=== PATIENT | female | born 1950 | race Caucasian/White ===

== ENCOUNTER 2017-05-16 15:55 | Emergency (ER) | payer OTHER ==
[~2017-05-16] VITALS: Ht 162.6 cm; Wt 69.5 kg
[2017-05-16] MEDS ORDERED: MAALOX/HYOSCYAMINE/LIDOCAINE 45 ML BTL ONE (16:26)
[2017-05-16 16:30] LABS: HEMATOCRIT 43.9 % (34.6-47.8); HEMOGLOBIN 14.8 g/dL (11.7-16.4); WHITE BLOOD COUNT 9.7 x10^3/uL (3.4-10)
[2017-05-16] MEDS ORDERED: MAALOX/HYOSCYAMINE/LIDOCAINE 45 ML BTL PO ONE (16:30)
[2017-05-16 16:42] LABS: ASPARTATE AMINO TRANSFERASE 17 U/L (15-37); BLOOD UREA NITROGEN 24 mg/dL (7-18)
[2017-05-16 16:50] LABS: IS PT STATUS REG ER OR PRE ER? YES
[2017-05-16 17:04] LABS: PATH.CAST-FLAG NOT PRESENT; SPERM-FLAG NOT PRESENT; SRC-FLAG NOT PRESENT; XTAL-FLAG NOT PRESENT; YLC-FLAG NOT PRESENT
[2017-05-16 17:30] VITALS: BP 134/82
== END 2017-05-16 18:13 | disposition home or self-care (01) ==
LOC: ED 17:50
DX: K29.00 Acute gastritis without bleeding (principal); R07.89 Other chest pain; I10 Essential (primary) hypertension; M19.90 Unspecified osteoarthritis, unspecified site; K21.9 Gastro-esophageal reflux disease without esophagitis; F17.200 Nicotine dependence, unspecified, uncomplicated
CPT/HCPCS: 36415; 71010; 76700; 80053; 81001; 83690; 84484; 85025; 87077; 87086; 87186; 93005; 99285

== ENCOUNTER 2018-08-04 13:44 | Emergency (ER) | payer MEDICARE, OTHER ==
[~2018-08-04] VITALS: Ht 162.6 cm; Wt 68.7 kg
[2018-08-04 13:48] VITALS: BP 154/86
[2018-08-04 14:23] LABS: MEAN CORPUSCULAR HEMOGLOBIN 31.9 pg (27.0-34.8); MEAN CORPUSCULAR HGB CONC 34.4 g/dL (32.4-35.8); MEAN CORPUSCULAR VOLUME 92.8 fL (80-100); MEAN PLATELET VOLUME 7.5 fL (7.4-10.4); PLATELET COUNT 325 x10^3/uL (130-400); RED BLOOD COUNT 4.31 x10^6/uL (3.82-5.3)
[2018-08-04 14:33] LABS: ALBUMIN 3.2 g/dL (3.4-5.0); ANION GAP 8 mmol/L (5-15); CHLORIDE 107 mmol/L (98-107); CREATININE 1.41 mg/dL (0.55-1.02)
[2018-08-04 14:51] LABS: MD YES
[2018-08-04 14:54] LABS: <PLATELET ESTIMATE> ADEQUATE; <PLT MORPHOLOGY> NORMAL PLT MORPH; <RBC MORPHOLOGY> NORMAL; BAND#(MANUAL) 0.68 x10^3/uL; BANDS%(MANUAL) 7 % (0-7); LYMPH#(MANUAL) 2.33 x10^3/uL (1-3.4); LYMPHS% (MANUAL) 24 % (22-44); MONOS#(MANUAL) 1.46 x10^3/uL (0.3-2.7); MONOS% (MANUAL) 15 % (2-9); SEG#(MANUAL) 5.24 x10^3/uL (1.8-6.8); SEGS% (MANUAL) 54 % (42-75)
== END 2018-08-04 15:21 | disposition left against medical advice (07) ==
LOC: ED 15:15
DX: M79.10 Myalgia, unspecified site (principal)
CPT/HCPCS: 36415; 80048; 82040; 85025; 93005; 99284

== ENCOUNTER 2018-08-05 17:07 | Outpatient (CLI) | payer MEDICARE ==
[~2018-08-05 17:07] MED LIST: OMNIPAQUE 350 MG/ML, 75ML BOTTLE ONE
== END 2018-08-05 23:59 | disposition home or self-care (01) ==
LOC: RAD 17:07
PROVIDERS: ATTEND Nurse Practitioner Primary Care
DX: R68.84 Jaw pain (principal); R59.9 Enlarged lymph nodes, unspecified
CPT/HCPCS: 70487; Q9967

== ENCOUNTER 2018-08-16 12:25 | Emergency (ER) | payer MEDICARE ==
[~2018-08-16] VITALS: Ht 160 cm; Wt 66.9 kg
--- NOTE | 2018-08-16 13:12 | NUR ---
PT COMPLAINT OF BILATERAL LOWER JAW PAIN WITH BODY ACHES. HAS FELT LIKE SHE HAS HAD A FEVER.
[2018-08-16 13:15] LABS: MEAN CORPUSCULAR HEMOGLOBIN 30.4 pg (27.0-34.8); MEAN CORPUSCULAR HGB CONC 32.8 g/dL (32.4-35.8); MEAN CORPUSCULAR VOLUME 92.6 fL (80-100); PLATELET COUNT 223 x10^3/uL (130-400); RED BLOOD COUNT 4.45 x10^6/uL (3.82-5.3); RED CELL DISTRIBUTION WIDTH 14.6 % (9.6-15.2)
[2018-08-16 13:24] LABS: ALANINE AMINOTRANSFERASE 29 U/L (12-78); ALBUMIN 3.4 g/dL (3.4-5.0); ANION GAP 9 mmol/L (5-15); CALCIUM 9.5 mg/dL (8.5-10.1); CHLORIDE 106 mmol/L (98-107)
[2018-08-16 13:26] LABS: ALKALINE PHOSPHATASE 289 U/L (45-117); BILIRUBIN,TOTAL 0.4 mg/dL (0.2-1.0); TOTAL PROTEIN 7.7 g/dL (6.4-8.2)
[2018-08-16] MEDS ORDERED: KETOROLAC 30 MG/1 ML IM ONE (13:30)
[2018-08-16 13:32] LABS: MD YES
[2018-08-16 13:33] LABS: BAND#(MANUAL) 0.62 x10^3/uL; BANDS%(MANUAL) 8 % (0-7); EOS#(MANUAL) 0.08 x10^3/uL (0.0-0.4); EOS% (MANUAL) 1 % (1-7); LYMPH#(MANUAL) 1.64 x10^3/uL (1-3.4); LYMPHS% (MANUAL) 21 % (22-44); METAMYELOCYTES# (MANUAL) 0.16 x10^3/uL (0-0); METAMYELOCYTES% (MANUAL) 2 % (0-1); MONOS#(MANUAL) 0.47 x10^3/uL (0.3-2.7); MONOS% (MANUAL) 6 % (2-9); NRBC % (MANUAL) 2 % (0-1); SEG#(MANUAL) 4.84 x10^3/uL (1.8-6.8); SEGS% (MANUAL) 62 % (42-75)
[2018-08-16 13:35] LABS: <PLATELET ESTIMATE> ADEQUATE; <PLT MORPHOLOGY> NORMAL PLT MORPH; <RBC MORPHOLOGY> NORMAL
[2018-08-16] MEDS ORDERED: KETOROLAC 30 MG/1 ML ONE (13:36)
[2018-08-16 14:02] LABS: TROPONIN I < 0.015 ng/mL (0.000-0.045)
--- NOTE | 2018-08-16 14:14 | NUR ---
pt in bed at this time. medicated per order. pt instructed on the need for a urine sample. ua cup left on counter with instructions. warm blanket provided and pt resting comfortably at this time.
[2018-08-16 14:28] LABS: HCT (SEDRATE) 41.2 % (34.6-47.8)
[2018-08-16] MEDS ORDERED: ACETAMINOPHEN 500 MG TABLET PO ONE (14:30)
[2018-08-16] MEDS ORDERED: ACETAMINOPHEN 500 MG TABLET ONE (14:35)
[2018-08-16 15:03] LABS: MICROSCOPIC NOT IND
[2018-08-16 15:10] LABS: CULTURE INDICATED? NO
[2018-08-16 16:10] VITALS: BP 129/60
--- NOTE | 2018-08-16 16:11 | NUR ---
TASK RN: PT RESTING ON GURNEY. NADN. METZGER.
== END 2018-08-16 16:41 | disposition home or self-care (01) ==
LOC: ED 14:15
DX: M31.6 Other giant cell arteritis (principal); R51 Headache; K21.9 Gastro-esophageal reflux disease without esophagitis; I10 Essential (primary) hypertension; M19.90 Unspecified osteoarthritis, unspecified site
CPT/HCPCS: 36415; 70450; 71045; 76700; 80053; 81003; 84484; 85025; 85651; 87040; 93005; 96372; 99284; J1885; J7512

== ENCOUNTER 2018-09-12 19:22 | Emergency (ER) | payer MEDICARE ==
[~2018-09-12] VITALS: Ht 162.6 cm; Wt 68.4 kg
--- NOTE | 2018-09-12 19:46 | NUR ---
PT REPORTS INTERMITTENT FEVERS WITH JAW PAIN FOR THE PAST 6 WEEKS. HAS HAD MANY FOLLOW UPS WITH NO DIAGNOSIS. PT REPORTS THE ALL OVER BODY PAIN HAS BECOME UNBEARABLE, DIFFICULTY SLEEPING. AFEBRILE/APPEARS ANXIOUS
[2018-09-12] MEDS ORDERED: DULO30CA2 PO (19:52)
[2018-09-12] MEDS ORDERED: PRED20TA PO (19:52)
[2018-09-12 19:56] LABS: ALBUMIN 3.2 g/dL (3.4-5.0); ANION GAP 6 mmol/L (5-15); CALCIUM 8.5 mg/dL (8.5-10.1); CHLORIDE 103 mmol/L (98-107)
[2018-09-12 20:01] LABS: ALKALINE PHOSPHATASE 230 U/L (45-117); BILIRUBIN,TOTAL 0.4 mg/dL (0.2-1.0); TOTAL PROTEIN 6.6 g/dL (6.4-8.2)
[2018-09-12] MEDS ORDERED: KETOROLAC 30 MG/1 ML ONE (20:05)
[2018-09-12 20:14] LABS: ALANINE AMINOTRANSFERASE 35 U/L (12-78)
[2018-09-12 20:15] LABS: MEAN CORPUSCULAR HEMOGLOBIN 31.8 pg (27.0-34.8); MEAN CORPUSCULAR HGB CONC 33.7 g/dL (32.4-35.8); MEAN CORPUSCULAR VOLUME 94.1 fL (80-100); MEAN PLATELET VOLUME 7.9 fL (7.4-10.4); PLATELET COUNT 104 x10^3/uL (130-400); RED BLOOD COUNT 4.07 x10^6/uL (3.82-5.3); RED CELL DISTRIBUTION WIDTH 18.6 % (9.6-15.2)
[2018-09-12 20:17] LABS: MD YES
[2018-09-12 20:23] LABS: MICROSCOPIC NOT IND
[2018-09-12 20:29] LABS: CULTURE INDICATED? NO
[2018-09-12] MEDS ORDERED: KETOROLAC 30 MG/1 ML IM ONE (20:30)
[2018-09-12 20:31] LABS: BAND#(MANUAL) 1.05 x10^3/uL; BANDS%(MANUAL) 15 % (0-7); LYMPH#(MANUAL) 1.33 x10^3/uL (1-3.4); LYMPHS% (MANUAL) 19 % (22-44); METAMYELOCYTES# (MANUAL) 0.14 x10^3/uL (0-0); METAMYELOCYTES% (MANUAL) 2 % (0-1); MONOS#(MANUAL) 0.28 x10^3/uL (0.3-2.7); MONOS% (MANUAL) 4 % (2-9); MYELOCYTES# (MANUAL) 0.07 x10^3/uL (0-0); MYELOCYTES% (MANUAL) 1 % (0-0); NRBC % (MANUAL) 2 % (0-1); SEG#(MANUAL) 4.13 x10^3/uL (1.8-6.8); SEGS% (MANUAL) 59 % (42-75)
[2018-09-12 20:34] LABS: ANISOCYTOSIS 1+; POLYCHROMASIA 1+
[2018-09-12 20:35] LABS: <PLATELET ESTIMATE> DECREASED; <PLT MORPHOLOGY> NORMAL PLT MORPH; TOXIC GRAN 1+
--- NOTE | 2018-09-12 20:38 | NUR ---
PATIENT CONTINUE TO REPORT GENERALIZED EXTREMITY/JAW PAIN AT 10/10 AFTER TORADOL, HR REAMIN 110. PRVIDER MADE AWARE. PATIENT UPDATED ON ESTIMATED POC CALL VASQUEZ WITHIN REACH
--- NOTE | 2018-09-12 21:01 | NUR ---
ASSUMED CARE OF PATIENT. BEDSIDE REPORT GIVEN FROM SOPHIA MULLER.
[2018-09-12 21:11] LABS: HCT (SEDRATE) 38.3 % (34.6-47.8)
[2018-09-12] MEDS ORDERED: ZIPRASIDONE 20 MG INJ IM ONE ×3 (21:23→21:30)
[2018-09-12 22:01] VITALS: BP 117/82
== END 2018-09-12 22:03 | disposition home or self-care (01) ==
LOC: ED 20:48
DX: R68.84 Jaw pain (principal); M79.621 Pain in right upper arm; M79.622 Pain in left upper arm; M25.562 Pain in left knee; M25.561 Pain in right knee; D72.825 Bandemia; I10 Essential (primary) hypertension; M19.90 Unspecified osteoarthritis, unspecified site; K21.9 Gastro-esophageal reflux disease without esophagitis; Z90.89 Acquired absence of other organs
CPT/HCPCS: 36415; 80053; 81003; 85025; 85651; 86140; 96372; 99283; J1885; J3486

== ENCOUNTER 2018-09-25 11:04 | Inpatient (IN) | payer MEDICARE ==
[~2018-09-25] VITALS: Ht 160 cm; Wt 75.5 kg
[2018-09-25] VITALS (8 sets, daily range): BP systolic 101–134; BP diastolic 64–75
[~2018-09-25 11:04] MED LIST changes: +DULO30CA2 PO; -OMNIPAQUE 350 MG/ML, 75ML BOTTLE ONE; +PRED20TA PO
[2018-09-25] MEDS ORDERED: OMEP20TA62 PO (11:51)
[2018-09-25] MEDS ORDERED: CELEBREX PO (11:51)
[2018-09-25] MEDS ORDERED: METO25TA2 PO (11:51)
[2018-09-25] MEDS ORDERED: DIPH25CA61 PO (11:51)
[2018-09-25] MEDS ORDERED: OXYC-302 PO (11:51)
[2018-09-25] MEDS ORDERED: PRED20TA PO (11:51)
--- NOTE | 2018-09-25 11:51 | NUR ---
PT SENT BY PMD FOR LOW PLATELETS OF 16 FROM BLOOD DRAWN YESTERDAY. PT REPORTS SMALL NOSEBLEED TODAY. PT DENIES ANY OTHER BLEEDING. PT HAS BEEN DEALING WITH ALL OVER BODY PAIN AND FEVER ABOUT 2 MONTHS WITH UNKNOWN AUTOIMMUNE DISORDER PER PT BUT PER TRANSFER REPORT RECEIVED ON PINK SHEET, GIANT CELL ARTERITIS WAS WRITTEN. PT COMFORTABLE NOW.
[2018-09-25 12:09] LABS: ALBUMIN 2.8 g/dL (3.4-5.0); ANION GAP 10 mmol/L (5-15); CALCIUM 8.5 mg/dL (8.5-10.1); CHLORIDE 104 mmol/L (98-107)
[2018-09-25 12:24] LABS: ALANINE AMINOTRANSFERASE 50 U/L (12-78); ALKALINE PHOSPHATASE 274 U/L (45-117); BILIRUBIN,TOTAL 0.5 mg/dL (0.2-1.0); CREATININE 1.05 mg/dL (0.55-1.02); TOTAL PROTEIN 5.8 g/dL (6.4-8.2)
[2018-09-25 12:31] LABS: MEAN CORPUSCULAR HEMOGLOBIN 31.4 pg (27.0-34.8); MEAN CORPUSCULAR HGB CONC 34.6 g/dL (32.4-35.8); MEAN CORPUSCULAR VOLUME 90.7 fL (80-100); MEAN PLATELET VOLUME 7.5 fL (7.4-10.4); PLATELET COUNT 10 x10^3/uL (130-400); RED BLOOD COUNT 2.76 x10^6/uL (3.82-5.3); RED CELL DISTRIBUTION WIDTH 17.8 % (9.6-15.2)
[2018-09-25 12:32] LABS: MD YES
--- NOTE | 2018-09-25 12:32 | NUR ---
LDH > 4000 AND PLT 10-RESULTS GIVEN TO DR. JORDAN.
[2018-09-25 13:10] LABS: BAND#(MANUAL) 0.79 x10^3/uL; BANDS%(MANUAL) 18 % (0-7); LYMPH#(MANUAL) 1.63 x10^3/uL (1-3.4); LYMPHS% (MANUAL) 37 % (22-44); METAMYELOCYTES# (MANUAL) 0.35 x10^3/uL (0-0); METAMYELOCYTES% (MANUAL) 8 % (0-1); MONOS#(MANUAL) 0.04 x10^3/uL (0.3-2.7); MONOS% (MANUAL) 1 % (2-9); MYELOCYTES# (MANUAL) 0.35 x10^3/uL (0-0); MYELOCYTES% (MANUAL) 8 % (0-0); SEG#(MANUAL) 1.23 x10^3/uL (1.8-6.8); SEGS% (MANUAL) 28 % (42-75)
[2018-09-25 13:11] LABS: NRBC % (MANUAL) 2 % (0-1)
[2018-09-25 13:15] LABS: ANISOCYTOSIS 1+; MICROCYTOSIS 1+
[2018-09-25 13:16] LABS: TOXIC GRAN 1+
[2018-09-25 13:21] LABS: <PLATELET ESTIMATE> DECREASED; <PLT MORPHOLOGY> QNS
--- NOTE | 2018-09-25 13:30 | NUR ---
PER DR. JORDAN, WE ARE WAITING FOR [facility] CONSULT TO SEE IF PT NEEDS PLATLETS TODAY. PT AWARE.
--- NOTE | 2018-09-25 14:28 | NUR ---
STILL WAITNIG FOR CALL FROM [facility]. PT AWARE. VSS.
[2018-09-25] MEDS ORDERED: ACETAMINOPHEN 325 MG TABLET PO PRN (16:30)
[2018-09-25] MEDS: OXYcodone/APAP 5/325MG TABLET PO PRN ×2 (17:34→21:30)
[2018-09-25] MEDS: NICOTINE 14MG/24 HR PATCH.TD24 TD SCH (17:34)
[2018-09-25] MEDS: SODIUM CHLORIDE 0.9% 1,000 ML IV SCH (18:23)
[2018-09-25] MEDS ORDERED: DIPHENHYDRAMINE 50 MG CAPSULE PO ONE (21:00)
[2018-09-25] MEDS ORDERED: DULOXETINE 30 MG CAPSULE.DR PO SCH (21:00)
[2018-09-25] MEDS: DOCUSATE 100 MG CAPSULE PO PRN (21:30)
[2018-09-26 00:24] LABS: MICROSCOPIC NOT IND
[2018-09-26 00:31] LABS: CULTURE INDICATED? NO
[2018-09-26 00:36] LABS: CREATININE,URINE RANDOM 29.9 mg/dL
[2018-09-26 00:54] VITALS: BP 119/78
[2018-09-26] MEDS: OXYcodone/APAP 5/325MG TABLET PO PRN ×6 (01:08→20:01)
[2018-09-26 05:00] LABS: MEAN CORPUSCULAR HEMOGLOBIN 30.3 pg (27.0-34.8); MEAN CORPUSCULAR HGB CONC 34.5 g/dL (32.4-35.8); MEAN CORPUSCULAR VOLUME 87.9 fL (80-100); RED BLOOD COUNT 2.92 x10^6/uL (3.82-5.3); RED CELL DISTRIBUTION WIDTH 19.2 % (9.6-15.2)
[2018-09-26 05:15] LABS: ALBUMIN 2.6 g/dL (3.4-5.0); ANION GAP 6 mmol/L (5-15); CALCIUM 8.1 mg/dL (8.5-10.1); CHLORIDE 102 mmol/L (98-107)
[2018-09-26] MEDS: PANTOPRAZOLE 20MG TABLET PO SCH (05:20)
[2018-09-26 05:21] LABS: MEAN PLATELET VOLUME 8.1 fL (7.4-10.4); PLATELET COUNT 53 x10^3/uL (130-400)
[2018-09-26 05:23] LABS: MD YES
[2018-09-26 05:28] LABS: ALANINE AMINOTRANSFERASE 44 U/L (12-78); ALKALINE PHOSPHATASE 236 U/L (45-117); BILIRUBIN,TOTAL 0.6 mg/dL (0.2-1.0); CREATININE 0.88 mg/dL (0.55-1.02); THYROID STIMULATING HORMONE 0.325 mIU/L (0.358-3.740); TOTAL PROTEIN 5.4 g/dL (6.4-8.2)
[2018-09-26 05:33] LABS: BAND#(MANUAL) 0.54 x10^3/uL; BANDS%(MANUAL) 18 % (0-7); LYMPHS% (MANUAL) 40 % (22-44); METAMYELOCYTES# (MANUAL) 0.12 x10^3/uL (0-0); METAMYELOCYTES% (MANUAL) 4 % (0-1); MONOS#(MANUAL) 0.06 x10^3/uL (0.3-2.7); MONOS% (MANUAL) 2 % (2-9); MYELOCYTES# (MANUAL) 0.09 x10^3/uL (0-0); MYELOCYTES% (MANUAL) 3 % (0-0); SEG#(MANUAL) 0.93 x10^3/uL (1.8-6.8); SEGS% (MANUAL) 31 % (42-75)
[2018-09-26 05:34] LABS: OTHER CELLS # (MANUAL) 0.06 x10^3/uL (0-0); OTHER CELLS % (MANUAL) 2 % (0-0)
[2018-09-26 05:35] LABS: ANISOCYTOSIS 1+
[2018-09-26 05:36] LABS: MICROCYTOSIS 1+; OVALOCYTES 1+; POLYCHROMASIA 1+
[2018-09-26 05:37] LABS: <PLATELET ESTIMATE> DECREASED; <PLT MORPHOLOGY> NORMAL PLT MORPH; TOXIC GRAN 1+
[2018-09-26] MEDS: SODIUM CHLORIDE 0.9% 1,000 ML IV SCH ×2 (05:49→18:38)
[2018-09-26 07:50] VITALS: BP 127/73
[2018-09-26] MEDS: DULOXETINE 30 MG CAPSULE.DR PO SCH (09:12)
[2018-09-26] MEDS: DOCUSATE 100 MG CAPSULE PO PRN (09:12)
[2018-09-26] MEDS: METOPROLOL SUCCINATE 25 MG TAB.ER.24H PO SCH (09:12)
[2018-09-26 11:56] LABS: ABSOLUTE RETICS # 0.03 x10^6/uL (0.5-2.5); RED BLOOD COUNT 3.1 x10^6/uL (3.82-5.3); RETICULOCYTE COUNT % 0.96 % (0.5-1.5)
[2018-09-26 15:59] VITALS: BP 115/72
[2018-09-26] MEDS: NICOTINE 14MG/24 HR PATCH.TD24 TD SCH (16:36)
[2018-09-26] MEDS: POLYETHYLENE GLYCOL 17 GM PACKET PO PRN (18:38)
[2018-09-26 19:50] VITALS: BP 131/77
[2018-09-27 01:20] VITALS: BP 118/69
[2018-09-27] MEDS: OXYcodone/APAP 5/325MG TABLET PO PRN ×6 (01:20→20:33)
[2018-09-27] MEDS: PANTOPRAZOLE 20MG TABLET PO SCH (04:58)
[2018-09-27] MEDS: SODIUM CHLORIDE 0.9% 1,000 ML IV SCH ×2 (08:29→22:08)
[2018-09-27 08:40] VITALS: BP 134/83
[2018-09-27] MEDS: DULOXETINE 30 MG CAPSULE.DR PO SCH (08:45)
[2018-09-27] MEDS: METOPROLOL SUCCINATE 25 MG TAB.ER.24H PO SCH (08:46)
[2018-09-27] MEDS: MORPHINE SULFATE 4 MG/ML, 1ML IV PRN ×2 (09:58→22:05)
[2018-09-27] MEDS: SENNA/DOCUSATE TABLET PO SCH (12:30)
[2018-09-27] MEDS: MAGNESIUM HYDROXIDE 8%, 30ML UDC PO SCH (12:31)
[2018-09-27 14:49] VITALS: BP 128/74
[2018-09-27] MEDS: NICOTINE 14MG/24 HR PATCH.TD24 TD SCH (16:07)
[2018-09-27 20:16] VITALS: BP 133/78
[2018-09-27] MEDS: POLYETHYLENE GLYCOL 17 GM PACKET PO PRN (20:32)
[2018-09-27] MEDS: DOCUSATE 100 MG CAPSULE PO PRN (20:33)
[2018-09-28] MEDS: OXYcodone/APAP 5/325MG TABLET PO PRN (01:05)
[2018-09-28 01:25] VITALS: BP 116/71
[2018-09-28 05:05] LABS: ALBUMIN 2.8 g/dL (3.4-5.0); ANION GAP 7 mmol/L (5-15); CALCIUM 7.8 mg/dL (8.5-10.1); CHLORIDE 106 mmol/L (98-107)
[2018-09-28 05:08] LABS: ALANINE AMINOTRANSFERASE 99 U/L (12-78); ALKALINE PHOSPHATASE 301 U/L (45-117); BILIRUBIN,TOTAL 0.5 mg/dL (0.2-1.0); CREATININE 0.78 mg/dL (0.55-1.02); TOTAL PROTEIN 5.7 g/dL (6.4-8.2)
[2018-09-28] MEDS: PANTOPRAZOLE 20MG TABLET PO SCH (05:19)
[2018-09-28] MEDS: MORPHINE SULFATE 4 MG/ML, 1ML IV PRN ×2 (05:24→08:56)
[2018-09-28 05:51] LABS: MEAN CORPUSCULAR HEMOGLOBIN 30.4 pg (27.0-34.8); MEAN CORPUSCULAR HGB CONC 34.6 g/dL (32.4-35.8); MEAN CORPUSCULAR VOLUME 87.8 fL (80-100); MEAN PLATELET VOLUME 8.4 fL (7.4-10.4); RED BLOOD COUNT 3.05 x10^6/uL (3.82-5.3)
[2018-09-28 05:53] LABS: PLATELET COUNT 23 x10^3/uL (130-400)
[2018-09-28 05:54] LABS: MD YES
[2018-09-28 06:00] LABS: BAND#(MANUAL) 0.49 x10^3/uL; BANDS%(MANUAL) 19 % (0-7); LYMPH#(MANUAL) 0.91 x10^3/uL (1-3.4); LYMPHS% (MANUAL) 35 % (22-44); METAMYELOCYTES# (MANUAL) 0.13 x10^3/uL (0-0); METAMYELOCYTES% (MANUAL) 5 % (0-1); MONOS#(MANUAL) 0.05 x10^3/uL (0.3-2.7); MONOS% (MANUAL) 2 % (2-9); MYELOCYTES# (MANUAL) 0.05 x10^3/uL (0-0); MYELOCYTES% (MANUAL) 2 % (0-0); NRBC % (MANUAL) 1 % (0-1); SEG#(MANUAL) 0.96 x10^3/uL (1.8-6.8); SEGS% (MANUAL) 37 % (42-75)
[2018-09-28 06:01] LABS: <PLATELET ESTIMATE> DECREASED; <PLT MORPHOLOGY> NORMAL PLT MORPH; ANISOCYTOSIS 1+; OVALOCYTES 1+; POLYCHROMASIA 1+
[2018-09-28 07:24] VITALS: BP 131/71
[2018-09-28] MEDS: DULOXETINE 30 MG CAPSULE.DR PO SCH (08:23)
[2018-09-28] MEDS: METOPROLOL SUCCINATE 25 MG TAB.ER.24H PO SCH (08:23)
[2018-09-28] MEDS: MAGNESIUM HYDROXIDE 8%, 30ML UDC PO SCH (08:23)
[2018-09-28] MEDS: SENNA/DOCUSATE TABLET PO SCH (08:23)
[2018-09-28] MEDS: OXYcodone IR 5MG TABLET PO PRN ×2 (08:24→13:29)
[2018-09-28] MEDS ORDERED: MORPHINE SULFATE 4 MG/ML, 1ML IVPush ONE (10:00)
[2018-09-28] MEDS: HYDROmorphone 2 MG/ML, 1ML IVPush PRN ×3 (10:40→20:35)
[2018-09-28] MEDS: SODIUM CHLORIDE 0.9% 1,000 ML IV SCH ×2 (11:18→23:38)
[2018-09-28 14:10] VITALS: BP 105/60
[2018-09-28] MEDS: NICOTINE 14MG/24 HR PATCH.TD24 TD SCH (16:11)
[2018-09-28] MEDS ORDERED: MAGNESIUM CITRATE 300ML ORAL SOL PO PRN (16:30)
[2018-09-28 18:51] LABS: MD YES
[2018-09-28 18:53] LABS: MEAN CORPUSCULAR HEMOGLOBIN 30.1 pg (27.0-34.8); MEAN CORPUSCULAR HGB CONC 34.3 g/dL (32.4-35.8); MEAN CORPUSCULAR VOLUME 87.9 fL (80-100); MEAN PLATELET VOLUME 7.7 fL (7.4-10.4); RED BLOOD COUNT 2.72 x10^6/uL (3.82-5.3); RED CELL DISTRIBUTION WIDTH 19.4 % (9.6-15.2)
[2018-09-28 18:55] LABS: PLATELET COUNT 16 x10^3/uL (130-400)
[2018-09-28 18:59] LABS: ANISOCYTOSIS 1+; BAND#(MANUAL) 0.37 x10^3/uL; BANDS%(MANUAL) 16 % (0-7); LYMPH#(MANUAL) 0.97 x10^3/uL (1-3.4); LYMPHS% (MANUAL) 42 % (22-44); METAMYELOCYTES# (MANUAL) 0.05 x10^3/uL (0-0); METAMYELOCYTES% (MANUAL) 2 % (0-1); MONOS#(MANUAL) 0.37 x10^3/uL (0.3-2.7); MONOS% (MANUAL) 16 % (2-9); NRBC % (MANUAL) 2 % (0-1); POLYCHROMASIA 1+; SEG#(MANUAL) 0.55 x10^3/uL (1.8-6.8); SEGS% (MANUAL) 24 % (42-75)
[2018-09-28 19:00] LABS: <PLATELET ESTIMATE> DECREASED; <PLT MORPHOLOGY> NORMAL PLT MORPH
[2018-09-28 20:03] VITALS: BP 135/79
[2018-09-29] VITALS (7 sets, daily range): BP systolic 114–133; BP diastolic 70–80
[2018-09-29] MEDS: HYDROmorphone 2 MG/ML, 1ML IVPush PRN ×6 (00:47→20:37)
[2018-09-29 05:21] LABS: MEAN CORPUSCULAR HEMOGLOBIN 30.4 pg (27.0-34.8); MEAN CORPUSCULAR HGB CONC 34.7 g/dL (32.4-35.8); MEAN CORPUSCULAR VOLUME 87.7 fL (80-100); RED BLOOD COUNT 2.73 x10^6/uL (3.82-5.3); RED CELL DISTRIBUTION WIDTH 18.6 % (9.6-15.2)
[2018-09-29 05:30] LABS: ALBUMIN 2.5 g/dL (3.4-5.0); CALCIUM 7.9 mg/dL (8.5-10.1)
[2018-09-29 05:34] LABS: ALANINE AMINOTRANSFERASE 95 U/L (12-78); ALKALINE PHOSPHATASE 271 U/L (45-117); ANION GAP 4 mmol/L (5-15); BILIRUBIN,TOTAL 0.5 mg/dL (0.2-1.0); CHLORIDE 105 mmol/L (98-107); CREATININE 0.67 mg/dL (0.55-1.02); TOTAL PROTEIN 5.1 g/dL (6.4-8.2)
[2018-09-29 05:52] LABS: MD YES
[2018-09-29 05:53] LABS: PLATELET COUNT 11 x10^3/uL (130-400)
[2018-09-29 05:57] LABS: <PLATELET ESTIMATE> DECREASED; <PLT MORPHOLOGY> NORMAL PLT MORPH; ANISOCYTOSIS 1+; BAND#(MANUAL) 0.08 x10^3/uL; BANDS%(MANUAL) 3 % (0-7); EOS#(MANUAL) 0.03 x10^3/uL (0.0-0.4); EOS% (MANUAL) 1 % (1-7); LYMPHS% (MANUAL) 44 % (22-44); METAMYELOCYTES% (MANUAL) 8 % (0-1); MONOS#(MANUAL) 0.18 x10^3/uL (0.3-2.7); MONOS% (MANUAL) 7 % (2-9); MYELOCYTES% (MANUAL) 4 % (0-0); POLYCHROMASIA 1+; SEG#(MANUAL) 0.83 x10^3/uL (1.8-6.8); SEGS% (MANUAL) 33 % (42-75)
[2018-09-29] MEDS: PANTOPRAZOLE 20MG TABLET PO SCH (06:00)
[2018-09-29] MEDS ORDERED: SODIUM POLYSTYRENE SULFONATE ORAL SUSP PO ONE (07:30)
[2018-09-29] MEDS: MAGNESIUM HYDROXIDE 8%, 30ML UDC PO SCH (08:21)
[2018-09-29] MEDS: SENNA/DOCUSATE TABLET PO SCH (08:21)
[2018-09-29] MEDS: DULOXETINE 30 MG CAPSULE.DR PO SCH (08:23)
[2018-09-29] MEDS: METOPROLOL SUCCINATE 25 MG TAB.ER.24H PO SCH (08:23)
[2018-09-29] MEDS ORDERED: MIDAZOLAM 1 MG/ML, 5ML ONE (08:33)
[2018-09-29] MEDS ORDERED: FLUMAZENIL 0.1 MG/1 ML, 5ML ONE (08:33)
[2018-09-29] MEDS ORDERED: FENTANYL PF 100 MCG/2ML ONE (08:33)
[2018-09-29] MEDS ORDERED: NALOXONE 1 MG/ML, 2ML ONE (08:34)
[2018-09-29 12:23] LABS: CHLORIDE 104 mmol/L (98-107)
[2018-09-29 12:27] LABS: ANION GAP 5 mmol/L (5-15); CALCIUM 7.8 mg/dL (8.5-10.1); CREATININE 0.63 mg/dL (0.55-1.02)
[2018-09-29] MEDS ORDERED: LIDOCAINE-MPF 1%, 5ML ONE (13:52)
[2018-09-29] MEDS ORDERED: LIDOCAINE 1%, 20ML ONE (13:52)
[2018-09-29] MEDS: NICOTINE 14MG/24 HR PATCH.TD24 TD SCH (16:24)
[2018-09-29] MEDS: SODIUM CHLORIDE 0.9% 1,000 ML IV SCH (16:25)
[2018-09-29 18:31] LABS: MEAN CORPUSCULAR HEMOGLOBIN 30.6 pg (27.0-34.8); MEAN CORPUSCULAR HGB CONC 35.2 g/dL (32.4-35.8); RED BLOOD COUNT 2.72 x10^6/uL (3.82-5.3); RED CELL DISTRIBUTION WIDTH 18.6 % (9.6-15.2)
[2018-09-29 18:32] LABS: PLATELET COUNT 41 x10^3/uL (130-400)
[2018-09-29 18:33] LABS: MD YES; MEAN PLATELET VOLUME 7.1 fL (7.4-10.4)
[2018-09-29 19:49] LABS: BAND#(MANUAL) 0.15 x10^3/uL; BANDS%(MANUAL) 6 % (0-7); EOS% (MANUAL) 4 % (1-7); LYMPH#(MANUAL) 1.13 x10^3/uL (1-3.4); LYMPHS% (MANUAL) 45 % (22-44); METAMYELOCYTES# (MANUAL) 0.03 x10^3/uL (0-0); METAMYELOCYTES% (MANUAL) 1 % (0-1); MONOS#(MANUAL) 0.15 x10^3/uL (0.3-2.7); MONOS% (MANUAL) 6 % (2-9); MYELOCYTES% (MANUAL) 4 % (0-0); REACTIVE LYMPHS # (MANUAL) 0.05 x10^3/uL (0-0); REACTIVE LYMPHS % (MANUAL) 2 % (0-0); SEG#(MANUAL) 0.75 x10^3/uL (1.8-6.8); SEGS% (MANUAL) 30 % (42-75)
[2018-09-29 19:50] LABS: NRBC % (MANUAL) 1 % (0-1); OTHER CELLS # (MANUAL) 0.05 x10^3/uL (0-0); OTHER CELLS % (MANUAL) 2 % (0-0)
[2018-09-29 19:53] LABS: <PLATELET ESTIMATE> DECREASED; ANISOCYTOSIS 1+; ROULEAUX 1+
[2018-09-29 19:54] LABS: <PLT MORPHOLOGY> NORMAL PLT MORPH
[2018-09-30] MEDS: HYDROmorphone 2 MG/ML, 1ML IVPush PRN ×5 (00:31→18:57)
[2018-09-30 01:42] VITALS: BP 128/88
[2018-09-30] MEDS: OXYcodone IR 5MG TABLET PO PRN ×4 (04:23→22:33)
[2018-09-30] MEDS: SODIUM CHLORIDE 0.9% 1,000 ML IV SCH (04:23)
[2018-09-30] MEDS: PANTOPRAZOLE 20MG TABLET PO SCH (04:23)
[2018-09-30 04:51] LABS: ALBUMIN 2.4 g/dL (3.4-5.0); ANION GAP 4 mmol/L (5-15); CALCIUM 7.6 mg/dL (8.5-10.1); CHLORIDE 105 mmol/L (98-107)
[2018-09-30 04:57] LABS: ALANINE AMINOTRANSFERASE 105 U/L (12-78); ALKALINE PHOSPHATASE 282 U/L (45-117); BILIRUBIN,TOTAL 0.6 mg/dL (0.2-1.0); CREATININE 0.63 mg/dL (0.55-1.02); TOTAL PROTEIN 5.2 g/dL (6.4-8.2)
[2018-09-30 07:35] VITALS: BP 142/78
[2018-09-30] MEDS: DULOXETINE 30 MG CAPSULE.DR PO SCH (08:58)
[2018-09-30] MEDS: MAGNESIUM HYDROXIDE 8%, 30ML UDC PO SCH (08:58)
[2018-09-30] MEDS: METOPROLOL SUCCINATE 25 MG TAB.ER.24H PO SCH (08:58)
[2018-09-30] MEDS: SENNA/DOCUSATE TABLET PO SCH (08:59)
[2018-09-30 10:24] LABS: MEAN CORPUSCULAR HEMOGLOBIN 29.9 pg (27.0-34.8); MEAN CORPUSCULAR HGB CONC 34.3 g/dL (32.4-35.8); MEAN CORPUSCULAR VOLUME 87.4 fL (80-100); MEAN PLATELET VOLUME 8.6 fL (7.4-10.4); RED BLOOD COUNT 2.75 x10^6/uL (3.82-5.3); RED CELL DISTRIBUTION WIDTH 18.9 % (9.6-15.2)
[2018-09-30 10:26] LABS: MD YES; PLATELET COUNT 25 x10^3/uL (130-400)
[2018-09-30 10:40] LABS: BAND#(MANUAL) 0.35 x10^3/uL; BANDS%(MANUAL) 14 % (0-7); LYMPH#(MANUAL) 1.05 x10^3/uL (1-3.4); LYMPHS% (MANUAL) 42 % (22-44); METAMYELOCYTES# (MANUAL) 0.13 x10^3/uL (0-0); METAMYELOCYTES% (MANUAL) 5 % (0-1); MONOS#(MANUAL) 0.18 x10^3/uL (0.3-2.7); MONOS% (MANUAL) 7 % (2-9); MYELOCYTES% (MANUAL) 4 % (0-0); SEG#(MANUAL) 0.68 x10^3/uL (1.8-6.8); SEGS% (MANUAL) 27 % (42-75)
[2018-09-30 10:42] LABS: OTHER CELLS # (MANUAL) 0.03 x10^3/uL (0-0); OTHER CELLS % (MANUAL) 1 % (0-0)
[2018-09-30 10:44] LABS: ANISOCYTOSIS 1+
[2018-09-30 10:46] LABS: <PLATELET ESTIMATE> DECREASED; <PLT MORPHOLOGY> NORMAL PLT MORPH
[2018-09-30 12:45] LABS: ANA SCREEN NEGATIVE (Negative)
[2018-09-30 14:26] VITALS: BP 131/79
[2018-09-30] MEDS: NICOTINE 14MG/24 HR PATCH.TD24 TD SCH (16:51)
[2018-09-30 19:31] VITALS: BP 146/88
[2018-10-01 01:04] VITALS: BP 120/75
[2018-10-01] MEDS: HYDROmorphone 2 MG/ML, 1ML IVPush PRN ×5 (01:17→21:54)
[2018-10-01] MEDS: OXYcodone IR 5MG TABLET PO PRN (04:58)
[2018-10-01 05:04] LABS: MEAN CORPUSCULAR HEMOGLOBIN 30.2 pg (27.0-34.8); MEAN CORPUSCULAR HGB CONC 34.5 g/dL (32.4-35.8); MEAN CORPUSCULAR VOLUME 87.4 fL (80-100); RED BLOOD COUNT 2.92 x10^6/uL (3.82-5.3); RED CELL DISTRIBUTION WIDTH 18.9 % (9.6-15.2)
[2018-10-01 05:10] LABS: ALANINE AMINOTRANSFERASE 160 U/L (12-78); ALBUMIN 2.3 g/dL (3.4-5.0); ANION GAP 8 mmol/L (5-15); CALCIUM 7.9 mg/dL (8.5-10.1); CHLORIDE 106 mmol/L (98-107); CREATININE 0.76 mg/dL (0.55-1.02)
[2018-10-01 05:12] LABS: ALKALINE PHOSPHATASE 387 U/L (45-117); BILIRUBIN,TOTAL 0.7 mg/dL (0.2-1.0); TOTAL PROTEIN 5.2 g/dL (6.4-8.2)
[2018-10-01] MEDS: PANTOPRAZOLE 20MG TABLET PO SCH (05:41)
[2018-10-01 06:03] LABS: MEAN PLATELET VOLUME 8.7 fL (7.4-10.4)
[2018-10-01 06:04] LABS: MD YES; PLATELET COUNT 14 x10^3/uL (130-400)
[2018-10-01 06:10] LABS: BANDS%(MANUAL) 13 % (0-7); EOS#(MANUAL) 0.03 x10^3/uL (0.0-0.4); EOS% (MANUAL) 1 % (1-7); METAMYELOCYTES# (MANUAL) 0.06 x10^3/uL (0-0); METAMYELOCYTES% (MANUAL) 2 % (0-1); NRBC % (MANUAL) 1 % (0-1); OTHER CELLS # (MANUAL) 0.09 x10^3/uL (0-0); REACTIVE LYMPHS # (MANUAL) 0.09 x10^3/uL (0-0); REACTIVE LYMPHS % (MANUAL) 3 % (0-0); SEG#(MANUAL) 0.87 x10^3/uL (1.8-6.8); SEGS% (MANUAL) 28 % (42-75)
[2018-10-01 06:11] LABS: LYMPH#(MANUAL) 1.49 x10^3/uL (1-3.4); LYMPHS% (MANUAL) 48 % (22-44); MONOS#(MANUAL) 0.06 x10^3/uL (0.3-2.7); MONOS% (MANUAL) 2 % (2-9); OTHER CELLS % (MANUAL) 3 % (0-0)
[2018-10-01 06:12] LABS: ANISOCYTOSIS 1+
[2018-10-01 06:13] LABS: <PLATELET ESTIMATE> DECREASED; <PLT MORPHOLOGY> NORMAL PLT MORPH; OVALOCYTES 1+
[2018-10-01 07:41] VITALS: BP 134/85
[2018-10-01] MEDS: SENNA/DOCUSATE TABLET PO SCH (09:00)
[2018-10-01] MEDS: MAGNESIUM HYDROXIDE 8%, 30ML UDC PO SCH (09:00)
[2018-10-01 09:46] LABS: ALBUMIN 2.3 g/dL (3.4-5.0); ANION GAP 9 mmol/L (5-15); CHLORIDE 105 mmol/L (98-107)
[2018-10-01 09:49] LABS: ALANINE AMINOTRANSFERASE 158 U/L (12-78); ALKALINE PHOSPHATASE 366 U/L (45-117); BILIRUBIN,TOTAL 0.9 mg/dL (0.2-1.0)
[2018-10-01 10:00] LABS: MD YES
[2018-10-01] MEDS: METOPROLOL SUCCINATE 25 MG TAB.ER.24H PO SCH (10:01)
[2018-10-01] MEDS: DULOXETINE 30 MG CAPSULE.DR PO SCH (10:02)
[2018-10-01 10:10] LABS: MEAN CORPUSCULAR HEMOGLOBIN 30.5 pg (27.0-34.8); MEAN CORPUSCULAR HGB CONC 34.8 g/dL (32.4-35.8); MEAN CORPUSCULAR VOLUME 87.7 fL (80-100); MEAN PLATELET VOLUME 8.3 fL (7.4-10.4); RED BLOOD COUNT 2.91 x10^6/uL (3.82-5.3); RED CELL DISTRIBUTION WIDTH 19.2 % (9.6-15.2)
[2018-10-01 10:12] LABS: PLATELET COUNT 14 x10^3/uL (130-400)
[2018-10-01 10:21] LABS: ANISOCYTOSIS 1+; BAND#(MANUAL) 0.47 x10^3/uL; BANDS%(MANUAL) 13 % (0-7); EOS#(MANUAL) 0.04 x10^3/uL (0.0-0.4); EOS% (MANUAL) 1 % (1-7); LYMPH#(MANUAL) 1.58 x10^3/uL (1-3.4); LYMPHS% (MANUAL) 44 % (22-44); METAMYELOCYTES# (MANUAL) 0.04 x10^3/uL (0-0); METAMYELOCYTES% (MANUAL) 1 % (0-1); MONOS#(MANUAL) 0.14 x10^3/uL (0.3-2.7); MONOS% (MANUAL) 4 % (2-9); MYELOCYTES# (MANUAL) 0.22 x10^3/uL (0-0); MYELOCYTES% (MANUAL) 6 % (0-0); OTHER CELLS # (MANUAL) 0.11 x10^3/uL (0-0); OTHER CELLS % (MANUAL) 3 % (0-0); REACTIVE LYMPHS # (MANUAL) 0.04 x10^3/uL (0-0); REACTIVE LYMPHS % (MANUAL) 1 % (0-0); SEG#(MANUAL) 0.97 x10^3/uL (1.8-6.8); SEGS% (MANUAL) 27 % (42-75)
[2018-10-01 10:23] LABS: <PLATELET ESTIMATE> DECREASED; <PLT MORPHOLOGY> NORMAL PLT MORPH; OVALOCYTES 1+
[2018-10-01] MEDS: MORPHINE SULFATE 4 MG/ML, 1ML IV PRN (12:04)
[2018-10-01 12:59] VITALS: BP 119/76
[2018-10-01] MEDS: MEROPENEM 1 GM in SODIUM CHLORIDE 0.9% 100 ML IV SCH ×2 (15:22→21:54)
[2018-10-01] MEDS: NICOTINE 14MG/24 HR PATCH.TD24 TD SCH (17:16)
[2018-10-01] MEDS: D5%-0.45NACL+KCL 20MEQ 1,000 ML IV SCH (17:16)
[2018-10-01 20:26] VITALS: BP 137/80
[2018-10-02] MEDS ORDERED: ACETAMINOPHEN 1,000 MG/100 ML IV IVPB PRN (01:00)
[2018-10-02 03:17] VITALS: BP 148/89
[2018-10-02] MEDS: HYDROmorphone 2 MG/ML, 1ML IVPush PRN ×5 (03:18→23:49)
[2018-10-02 05:01] LABS: MEAN CORPUSCULAR HEMOGLOBIN 30.3 pg (27.0-34.8); MEAN CORPUSCULAR HGB CONC 34.8 g/dL (32.4-35.8); MEAN CORPUSCULAR VOLUME 87.2 fL (80-100); RED BLOOD COUNT 2.73 x10^6/uL (3.82-5.3)
[2018-10-02 05:15] LABS: CHLORIDE 106 mmol/L (98-107)
[2018-10-02 05:21] LABS: ALANINE AMINOTRANSFERASE 139 U/L (12-78); ALBUMIN 2.3 g/dL (3.4-5.0); ALKALINE PHOSPHATASE 372 U/L (45-117); ANION GAP 10 mmol/L (5-15); BILIRUBIN,TOTAL 1.1 mg/dL (0.2-1.0); CREATININE 0.74 mg/dL (0.55-1.02); TOTAL PROTEIN 4.9 g/dL (6.4-8.2)
[2018-10-02 05:51] LABS: MEAN PLATELET VOLUME 7.9 fL (7.4-10.4)
[2018-10-02 05:54] LABS: PLATELET COUNT 11 x10^3/uL (130-400)
[2018-10-02] MEDS: PANTOPRAZOLE 20MG TABLET PO SCH (05:57)
[2018-10-02] MEDS: MEROPENEM 1 GM in SODIUM CHLORIDE 0.9% 100 ML IV SCH ×2 (05:57→14:36)
[2018-10-02] MEDS: D5%-0.45NACL+KCL 20MEQ 1,000 ML IV SCH ×2 (05:57→22:27)
[2018-10-02 06:05] LABS: MD YES
[2018-10-02 06:10] LABS: BAND#(MANUAL) 0.48 x10^3/uL; BANDS%(MANUAL) 12 % (0-7); EOS#(MANUAL) 0.08 x10^3/uL (0.0-0.4); EOS% (MANUAL) 2 % (1-7); LYMPH#(MANUAL) 1.72 x10^3/uL (1-3.4); LYMPHS% (MANUAL) 43 % (22-44); METAMYELOCYTES# (MANUAL) 0.08 x10^3/uL (0-0); METAMYELOCYTES% (MANUAL) 2 % (0-1); MONOS#(MANUAL) 0.16 x10^3/uL (0.3-2.7); MONOS% (MANUAL) 4 % (2-9); MYELOCYTES# (MANUAL) 0.08 x10^3/uL (0-0); MYELOCYTES% (MANUAL) 2 % (0-0); REACTIVE LYMPHS # (MANUAL) 0.04 x10^3/uL (0-0); REACTIVE LYMPHS % (MANUAL) 1 % (0-0); SEG#(MANUAL) 1.08 x10^3/uL (1.8-6.8); SEGS% (MANUAL) 27 % (42-75)
[2018-10-02 06:11] LABS: ANISOCYTOSIS 1+; NRBC % (MANUAL) 1 % (0-1); OTHER CELLS # (MANUAL) 0.28 x10^3/uL (0-0); OTHER CELLS % (MANUAL) 7 % (0-0)
[2018-10-02 06:12] LABS: OVALOCYTES 1+
[2018-10-02 06:13] LABS: <PLATELET ESTIMATE> DECREASED; <PLT MORPHOLOGY> NORMAL PLT MORPH
[2018-10-02 07:38] VITALS: BP 142/84
[2018-10-02] MEDS: MAGNESIUM HYDROXIDE 8%, 30ML UDC PO SCH ×2 (09:00→10:36)
[2018-10-02] MEDS: SENNA/DOCUSATE TABLET PO SCH (09:00)
[2018-10-02] MEDS: METOPROLOL SUCCINATE 25 MG TAB.ER.24H PO SCH (10:37)
[2018-10-02] MEDS: DULOXETINE 30 MG CAPSULE.DR PO SCH (10:37)
[2018-10-02 13:44] VITALS: BP 139/80
[2018-10-02] MEDS: OXYcodone IR 5MG TABLET PO PRN (15:06)
[2018-10-02] MEDS: MORPHINE SULFATE 4 MG/ML, 1ML IV PRN (15:36)
[2018-10-02] MEDS: NICOTINE 14MG/24 HR PATCH.TD24 TD SCH (15:36)
[2018-10-02] MEDS: ONDANSETRON 2MG/ML, 2ML IVPush PRN ×2 (15:47→23:49)
[2018-10-02 19:24] VITALS: BP 124/77
[2018-10-03] VITALS (9 sets, daily range): BP systolic 115–141; BP diastolic 67–85
[2018-10-03] MEDS: HYDROmorphone 2 MG/ML, 1ML IVPush PRN ×5 (04:19→20:54)
[2018-10-03 04:51] LABS: ALBUMIN 2.2 g/dL (3.4-5.0); ANION GAP 9 mmol/L (5-15); CALCIUM 8.2 mg/dL (8.5-10.1); CHLORIDE 105 mmol/L (98-107)
[2018-10-03 04:55] LABS: ALANINE AMINOTRANSFERASE 125 U/L (12-78); ALKALINE PHOSPHATASE 376 U/L (45-117); BILIRUBIN,TOTAL 2.1 mg/dL (0.2-1.0); CREATININE 0.79 mg/dL (0.55-1.02); TOTAL PROTEIN 4.9 g/dL (6.4-8.2)
[2018-10-03] MEDS: PANTOPRAZOLE 20MG TABLET PO SCH (05:12)
[2018-10-03 05:52] LABS: MEAN CORPUSCULAR HEMOGLOBIN 29.8 pg (27.0-34.8); MEAN CORPUSCULAR HGB CONC 33.9 g/dL (32.4-35.8); MEAN CORPUSCULAR VOLUME 87.9 fL (80-100); MEAN PLATELET VOLUME 10.6 fL (7.4-10.4); RED BLOOD COUNT 2.76 x10^6/uL (3.82-5.3); RED CELL DISTRIBUTION WIDTH 19.4 % (9.6-15.2)
[2018-10-03 05:53] LABS: MD YES; PLATELET COUNT 10 x10^3/uL (130-400)
[2018-10-03 06:00] LABS: BAND#(MANUAL) 0.33 x10^3/uL; BANDS%(MANUAL) 5 % (0-7); LYMPH#(MANUAL) 2.93 x10^3/uL (1-3.4); LYMPHS% (MANUAL) 45 % (22-44); METAMYELOCYTES# (MANUAL) 0.39 x10^3/uL (0-0); METAMYELOCYTES% (MANUAL) 6 % (0-1); MONOS#(MANUAL) 0.26 x10^3/uL (0.3-2.7); MONOS% (MANUAL) 4 % (2-9); MYELOCYTES% (MANUAL) 3 % (0-0); SEG#(MANUAL) 1.56 x10^3/uL (1.8-6.8); SEGS% (MANUAL) 24 % (42-75)
[2018-10-03 06:01] LABS: OTHER CELLS # (MANUAL) 0.85 x10^3/uL (0-0); OTHER CELLS % (MANUAL) 13 % (0-0)
[2018-10-03 06:03] LABS: <PLATELET ESTIMATE> DECREASED; <PLT MORPHOLOGY> NORMAL PLT MORPH; ANISOCYTOSIS 1+
[2018-10-03 06:04] LABS: OVALOCYTES 1+
[2018-10-03] MEDS ORDERED: SODIUM PHOSPHATE 10 MMOL in SODIUM CHLORIDE 0.9% 500 ML IV ONE (07:30)
[2018-10-03] MEDS: ONDANSETRON 2MG/ML, 2ML IVPush PRN ×2 (08:02→16:22)
[2018-10-03] MEDS: DULOXETINE 30 MG CAPSULE.DR PO SCH (09:00)
[2018-10-03] MEDS: SENNA/DOCUSATE TABLET PO SCH (09:00)
[2018-10-03] MEDS: MAGNESIUM HYDROXIDE 8%, 30ML UDC PO SCH (09:00)
[2018-10-03] MEDS: METOPROLOL SUCCINATE 25 MG TAB.ER.24H PO SCH ×2 (09:00→16:36)
[2018-10-03] MEDS ORDERED: MIDAZOLAM 1 MG/ML, 5ML ONE ×2 (09:13)
[2018-10-03] MEDS ORDERED: FLUMAZENIL 0.1 MG/1 ML, 5ML ONE (09:13)
[2018-10-03] MEDS ORDERED: FENTANYL PF 100 MCG/2ML ONE (09:13)
[2018-10-03] MEDS ORDERED: NALOXONE 1 MG/ML, 2ML ONE (09:13)
[2018-10-03] MEDS ORDERED: ONDANSETRON 2MG/ML, 2ML ONE (09:22)
[2018-10-03] MEDS ORDERED: LIDOCAINE-MPF 1%, 5ML ONE ×2 (09:45→09:46)
[2018-10-03] MEDS ORDERED: ONDANSETRON 2MG/ML, 2ML IVPush ONE (13:30)
[2018-10-03] MEDS: NICOTINE 14MG/24 HR PATCH.TD24 TD SCH (16:35)
[2018-10-04] MEDS: ONDANSETRON 2MG/ML, 2ML IVPush PRN ×2 (00:46→11:12)
[2018-10-04] MEDS: HYDROmorphone 2 MG/ML, 1ML IVPush PRN ×3 (01:27→11:16)
[2018-10-04 04:23] VITALS: BP 109/69
[2018-10-04 05:06] LABS: MEAN CORPUSCULAR HGB CONC 34.2 g/dL (32.4-35.8); MEAN CORPUSCULAR VOLUME 87.9 fL (80-100); RED BLOOD COUNT 2.69 x10^6/uL (3.82-5.3); RED CELL DISTRIBUTION WIDTH 19.4 % (9.6-15.2)
[2018-10-04 05:16] LABS: CHLORIDE 107 mmol/L (98-107)
[2018-10-04 05:39] LABS: ALANINE AMINOTRANSFERASE 130 U/L (12-78); ALBUMIN 2.2 g/dL (3.4-5.0); ALKALINE PHOSPHATASE 372 U/L (45-117); ANION GAP 19 mmol/L (5-15); CALCIUM 8.7 mg/dL (8.5-10.1); CREATININE 1.35 mg/dL (0.55-1.02); TOTAL PROTEIN 4.9 g/dL (6.4-8.2)
[2018-10-04] MEDS ORDERED: DEXTROSE 50%, 50ML SYRINGE IVPush ONE ×2 (06:00→10:30)
[2018-10-04] MEDS: PANTOPRAZOLE 20MG TABLET PO SCH (06:06)
[2018-10-04 06:09] LABS: MD YES; MEAN PLATELET VOLUME 8.7 fL (7.4-10.4); PLATELET COUNT 54 x10^3/uL (130-400)
[2018-10-04 06:13] LABS: BAND#(MANUAL) 0.85 x10^3/uL; BANDS%(MANUAL) 6 % (0-7); LYMPHS% (MANUAL) 56 % (22-44); MONOS#(MANUAL) 0.28 x10^3/uL (0.3-2.7); MONOS% (MANUAL) 2 % (2-9); SEGS% (MANUAL) 17 % (42-75)
[2018-10-04 06:14] LABS: <PLATELET ESTIMATE> DECREASED; ANISOCYTOSIS 1+; OTHER CELLS # (MANUAL) 2.68 x10^3/uL (0-0); OTHER CELLS % (MANUAL) 19 % (0-0); OVALOCYTES 1+
[2018-10-04 06:15] LABS: HYPOGRAN PLTS 1+
[2018-10-04] MEDS ORDERED: D5%-0.9% NACL 1,000 ML IV SCH (08:00)
[2018-10-04] MEDS ORDERED: SODIUM BICARB 8.4%,50ML SYR. 50 MEQ in DEXTROSE 5% 1,000 ML IV SCH (08:00)
[2018-10-04 08:45] LABS: ALANINE AMINOTRANSFERASE 140 U/L (12-78); ALBUMIN 2.2 g/dL (3.4-5.0); ANION GAP 24 mmol/L (5-15); BILIRUBIN, DIRECT 3.8 mg/dL (0.1-0.2); CALCIUM 8.7 mg/dL (8.5-10.1); CHLORIDE 107 mmol/L (98-107); CREATININE 1.66 mg/dL (0.55-1.02)
[2018-10-04 08:50] LABS: ALKALINE PHOSPHATASE 402 U/L (45-117); BILIRUBIN,INDIRECT 0.6 mg/dL (0.0-2.0); BILIRUBIN,TOTAL 4.4 mg/dL (0.2-1.0); TOTAL PROTEIN 5.1 g/dL (6.4-8.2); TROPONIN I 0.114 ng/mL (0.000-0.045)
[2018-10-04 08:53] VITALS: BP 96/64
[2018-10-04] MEDS ORDERED: HYDROmorphone 2 MG/ML, 1ML IVPush PRN (09:00)
[2018-10-04] MEDS ORDERED: HYDROmorphone 2 MG/ML, 1ML IVPush ONE (09:00)
[2018-10-04] MEDS: MAGNESIUM HYDROXIDE 8%, 30ML UDC PO SCH (09:00)
[2018-10-04] MEDS: METOPROLOL SUCCINATE 25 MG TAB.ER.24H PO SCH (09:00)
[2018-10-04] MEDS: SENNA/DOCUSATE TABLET PO SCH (09:00)
[2018-10-04] MEDS: DULOXETINE 30 MG CAPSULE.DR PO SCH (09:27)
[2018-10-04] MEDS ORDERED: VANCOMYCIN PER PHARMACY MC PRN (10:00)
[2018-10-04] MEDS ORDERED: SODIUM BICARBONATE 1 MEQ/ML, 50ML VIAL IVPush ONE ×2 (10:30)
[2018-10-04] MEDS ORDERED: SODIUM BICARB 8.4%, 50ML SYRINGE IVPush ONE (10:30)
[2018-10-04] MEDS ORDERED: VANCOMYCIN 1,400 MG in SODIUM CHLORIDE 0.9% 250 ML IV ONE (10:30)
[2018-10-04] MEDS ORDERED: PHARMACOKINETIC MONITORING MC PRN (10:30)
[2018-10-04] MEDS ORDERED: PHARMACOKINETIC CONSULTATION MC ONE (10:30)
[2018-10-04] MEDS: SODIUM BICARB 8.4%,50ML SYR. 150 MEQ in DEXTROSE 5% 1,000 ML IV SCH ×2 (10:34→16:29)
[2018-10-04] MEDS ORDERED: RASBURICASE IV ONE (11:30)
[2018-10-04] MEDS ORDERED: SODIUM CHLORIDE 0.9% IV ONE (11:30)
[2018-10-04] MEDS: CEFTAZIDIME PMX 2 GM/50ML 50 ML IV SCH ×2 (12:45→20:00)
[2018-10-04 13:28] LABS: ANION GAP 16 mmol/L (5-15); CALCIUM 6.7 mg/dL (8.5-10.1); CHLORIDE 87 mmol/L (98-107); CREATININE 1.73 mg/dL (0.55-1.02)
[2018-10-04 13:32] LABS: CREATINE KINASE, TOTAL 82 U/L (26-192); TROPONIN I 0.141 ng/mL (0.000-0.045)
[2018-10-04] MEDS: OXYcodone IR 5MG TABLET PO PRN ×3 (14:31→20:41)
[2018-10-04] MEDS: LINEZOLID PMX 600MG/300ML 300 ML IV SCH ×2 (14:37→23:42)
[2018-10-04 15:00] LABS: TROPONIN I 0.177 ng/mL (0.000-0.045)
[2018-10-04] MEDS: DOCUSATE 100 MG CAPSULE PO PRN (20:42)
[2018-10-05] MEDS: SODIUM BICARB 8.4%,50ML SYR. 150 MEQ in DEXTROSE 5% 1,000 ML IV SCH ×2 (00:07→08:07)
[2018-10-05] MEDS ORDERED: MORPHINE SULFATE 4 MG/ML, 1ML ONE (01:22)
[2018-10-05] MEDS ORDERED: ETOMIDATE 20 MG/10 ML IVPush ONE (01:25)
[2018-10-05] MEDS ORDERED: MORPHINE SULFATE 4 MG/ML, 1ML IVPush ONE (01:30)
[2018-10-05 01:33] LABS: MEAN CORPUSCULAR HEMOGLOBIN 29.6 pg (27.0-34.8); MEAN CORPUSCULAR HGB CONC 33.2 g/dL (32.4-35.8); MEAN CORPUSCULAR VOLUME 89.3 fL (80-100); MEAN PLATELET VOLUME 8.3 fL (7.4-10.4); PLATELET COUNT 65 x10^3/uL (130-400); RED BLOOD COUNT 2.35 x10^6/uL (3.82-5.3); RED CELL DISTRIBUTION WIDTH 20.4 % (9.6-15.2)
[2018-10-05 01:34] LABS: ALANINE AMINOTRANSFERASE 142 U/L (12-78); ALBUMIN 1.9 g/dL (3.4-5.0); ANION GAP 29 mmol/L (5-15); CALCIUM 8.2 mg/dL (8.5-10.1); CHLORIDE 97 mmol/L (98-107)
[2018-10-05] MEDS ORDERED: VECURONIUM 10 MG IVPush ONE (01:40)
[2018-10-05] MEDS ORDERED: NOREPINEPHRINE 1 MG/ML, 4ML ONE (01:40)
[2018-10-05 01:47] LABS: ALKALINE PHOSPHATASE 404 U/L (45-117); BILIRUBIN,TOTAL 4.3 mg/dL (0.2-1.0); CREATININE 1.92 mg/dL (0.55-1.02); TOTAL PROTEIN 4.3 g/dL (6.4-8.2)
[2018-10-05 01:49] LABS: MD YES
[2018-10-05 02:00] LABS: BAND#(MANUAL) 0.34 x10^3/uL; BANDS%(MANUAL) 1 % (0-7); LYMPHS% (MANUAL) 64 % (22-44); MONOS#(MANUAL) 0.67 x10^3/uL (0.3-2.7); MONOS% (MANUAL) 2 % (2-9); SEG#(MANUAL) 4.02 x10^3/uL (1.8-6.8); SEGS% (MANUAL) 12 % (42-75)
[2018-10-05] MEDS ORDERED: PROPOFOL 100 ML IV PRN (02:00)
[2018-10-05 02:01] LABS: ANISOCYTOSIS 1+; OTHER CELLS # (MANUAL) 7.04 x10^3/uL (0-0); OTHER CELLS % (MANUAL) 21 % (0-0); OVALOCYTES 1+
[2018-10-05 02:02] LABS: <PLATELET ESTIMATE> DECREASED; <PLT MORPHOLOGY> NORMAL PLT MORPH; POLYCHROMASIA 1+
[2018-10-05 02:05] LABS: HYPOGRAN PLTS 1+
[2018-10-05] MEDS: CEFTAZIDIME PMX 2 GM/50ML 50 ML IV SCH ×2 (03:39→10:00)
[2018-10-05] MEDS: NOREPINEPHRINE 4 MG in SODIUM CHLORIDE 0.9% 246 ML IV PRN ×2 (03:57→08:07)
[2018-10-05 05:00] VITALS: BP 84/48
[2018-10-05] MEDS ORDERED: SODIUM BICARB 8.4%, 50ML SYRINGE IVPush SCH (07:00)
[2018-10-05] MEDS ORDERED: VASOPRESSIN 100 UNIT in SODIUM CHLORIDE 0.9% 495 ML IV PRN (07:00)
[2018-10-05] MEDS ORDERED: SODIUM BICARB 8.4%, 50ML SYRINGE ONE (07:01)
[2018-10-05] MEDS ORDERED: SODIUM BICARB 8.4%, 50ML SYRINGE IVPush ONE (07:30)
[2018-10-05] MEDS ORDERED: EPINEPHRINE 4 MG in SODIUM CHLORIDE 0.9% 246 ML IV PRN (08:30)
[2018-10-05] MEDS ORDERED: EPINEPHRINE 2 MG in SODIUM CHLORIDE 0.9% 248 ML IV PRN (08:30)
[2018-10-05] MEDS: DULOXETINE 30 MG CAPSULE.DR PO SCH (09:00)
[2018-10-05] MEDS: MAGNESIUM HYDROXIDE 8%, 30ML UDC PO SCH (09:00)
[2018-10-05] MEDS: PANTOPRAZOLE 20MG TABLET PO SCH (09:00)
[2018-10-05] MEDS: SENNA/DOCUSATE TABLET PO SCH (09:00)
[2018-10-05] MEDS ORDERED: NOREPINEPHRINE 8 MG in SODIUM CHLORIDE 0.9% 242 ML IV PRN (09:30)
[2018-10-05] MEDS ORDERED: PROPOFOL 10 MG/ML, 20ML ONE (10:03)
[2018-10-05] MEDS ORDERED: ROCURONIUM 10MG/ML,5ML ONE (10:03)
[2018-10-05] MEDS ORDERED: ETOMIDATE 40 MG/20 ML ONE (10:03)
[2018-10-05] MEDS: LINEZOLID PMX 600MG/300ML 300 ML IV SCH (12:30)
[2018-10-05] MEDS ORDERED: CEFTAZIDIME PMX 2 GM/50ML 50 ML IV SCH (20:00)
== END 2018-10-05 16:17 | disposition expired | DRG 871 ==
LOC: ED 13:44 → EDIP 14:36 → 3NW 16:35 → CCU 10-04 11:10
PROVIDERS: ADMIT Internal Medicine; ATTEND Internal Medicine
PROC: 30233R1 Transfusion of Nonautologous Platelets into Peripheral Vein, Percutaneous Approach (ICD-10-PCS; principal; 2018-09-25)
PROC: 30233N1 Transfusion of Nonautologous Red Blood Cells into Peripheral Vein, Percutaneous Approach (ICD-10-PCS; 2018-09-25)
PROC: 07DR3ZX Extraction of Iliac Bone Marrow, Percutaneous Approach, Diagnostic (ICD-10-PCS; 2018-09-29)
PROC: 0GBJ3ZX Excision of Thyroid Gland Isthmus, Percutaneous Approach, Diagnostic (ICD-10-PCS; 2018-09-29)
PROC: 0FB03ZX Excision of Liver, Percutaneous Approach, Diagnostic (ICD-10-PCS; 2018-10-03)
PROC: 02HV33Z Insertion of Infusion Device into Superior Vena Cava, Percutaneous Approach (ICD-10-PCS; 2018-10-05)
PROC: B548ZZA Ultrasonography of Superior Vena Cava, Guidance (ICD-10-PCS; 2018-10-05)
PROC: 5A1935Z Respiratory Ventilation, Less than 24 Consecutive Hours (ICD-10-PCS; 2018-10-05)
PROC: 0BH17EZ Insertion of Endotracheal Airway into Trachea, Via Natural or Artificial Opening (ICD-10-PCS; 2018-10-05)
DX: A41.9 Sepsis, unspecified organism (principal); E43 Unspecified severe protein-calorie malnutrition; E88.3 Tumor lysis syndrome; G93.41 Metabolic encephalopathy; J96.00 Acute respiratory failure, unspecified whether with hypoxia or hypercapnia; N17.0 Acute kidney failure with tubular necrosis; R65.21 Severe sepsis with septic shock; D61.818 Other pancytopenia; B17.9 Acute viral hepatitis, unspecified; C82.90 Follicular lymphoma, unspecified, unspecified site; D59.1 Other autoimmune hemolytic anemias; D69.3 Immune thrombocytopenic purpura; K80.10 Calculus of gallbladder with chronic cholecystitis without obstruction; M48.56XA Collapsed vertebra, not elsewhere classified, lumbar region, initial encounter for fracture; I24.8 Other forms of acute ischemic heart disease; Z99.11 Dependence on respirator [ventilator] status; K80.11 Calculus of gallbladder with chronic cholecystitis with obstruction; M19.90 Unspecified osteoarthritis, unspecified site; I10 Essential (primary) hypertension; F32.9 Major depressive disorder, single episode, unspecified; F17.210 Nicotine dependence, cigarettes, uncomplicated; D63.8 Anemia in other chronic diseases classified elsewhere; E04.2 Nontoxic multinodular goiter; E16.2 Hypoglycemia, unspecified; E83.39 Other disorders of phosphorus metabolism; Z96.653 Presence of artificial knee joint, bilateral; E87.5 Hyperkalemia; I46.9 Cardiac arrest, cause unspecified; K21.9 Gastro-esophageal reflux disease without esophagitis; Z79.52 Long term (current) use of systemic steroids; Z80.3 Family history of malignant neoplasm of breast; Z82.49 Family history of ischemic heart disease and other diseases of the circulatory system; Z92.21 Personal history of antineoplastic chemotherapy; Z79.899 Other long term (current) drug therapy; Z98.51 Tubal ligation status; Z68.29 Body mass index [BMI] 29.0-29.9, adult
CPT/HCPCS: 10005; 36415; 36430; 36573; 36600; 37200; 38222; 71045; 71250; 72148; 74176; 74181; 75970; 76536; 76700; 76937; 77012; 78226; 80048; 80053; 80307; 81003; 82140; 82247; 82248; 82533; 82550; 82570; 82607; 82728; 82784; 82803; 82962; 83520; 83540; 83550; 83605; 83615; 83735; 84100; 84155; 84156; 84165; 84439; 84443; 84484; 84550; 85014; 85018; 85025; 85045; 85060; 85651; 86038; 86256; 86334; 86704; 86706; 86708; 86747; 86803; 86850; 86900; 86923; 87040; 87070; 87081; 87205; 87340; 87798; 87806; 88173; 88305; 88307; 88311; 88312; 88313; 88341; 88342; 88360; 93005; 94002; 94003; 99156; 99157; 99285; C1894; G0378; J1170; J2020; J2185; J2250; J2405; J2704; J2783; J3010; J3370; J7070; A9537; C1750; C1751; C1769; C9898; G0475; J0171; J0713; J2310; J3480; J7030; J7040; J7050; J7512; P9016; P9035